=== PATIENT | male | born 1960 ===

== ENCOUNTER 2023-11-26 08:15 | Outpatient (CLI) | payer OTHER, SELFPAY ==
[2023-11-26 08:31] VITALS: PULSE 59; RESP 18; O2SAT 97
[2023-11-26] MEDS: albuterol 2.5 mg/3 mL Neb INHALATION (08:31)
[2023-11-26 08:35] VITALS: PULSE 60
== END 2023-11-26 08:16 | disposition home or self-care (01) ==
PROVIDERS: Visit Provider Nurse Practitioner Family
DX: J45.909 Unspecified asthma, uncomplicated (principal)
CPT/HCPCS: 94060; J7613